=== PATIENT | female | born 1975 | race Caucasian/White ===

== ENCOUNTER 2016-09-12 11:24 | Emergency (ER) | payer OTHER ==
[~2016-09-12] VITALS: Ht 170.2 cm; Wt 73.6 kg
[~2016-09-12 11:24] MED LIST: ASCO500C2 PO; DOCO200C4 PO; FOLI0.4T2 PO; IBUP-1222 PO; OXYC-302 PO; PREN1TAB27 PO
[2016-09-12 12:46] LABS: BLOOD UREA NITROGEN 11 mg/dL (7-18)
[2016-09-12 13:01] VITALS: BP 117/71
== END 2016-09-12 13:18 | disposition home or self-care (01) ==
LOC: ED 13:12
DX: R00.2 Palpitations (principal)
CPT/HCPCS: 36415; 71020; 80048; 83735; 93005; 99285

== ENCOUNTER 2018-03-28 14:15 | Emergency (ER) | payer OTHER ==
[~2018-03-28] VITALS: Ht 167.6 cm; Wt 73.5 kg
[2018-03-28] MEDS ORDERED: MULT-658 PO (14:45)
[2018-03-28] MEDS ORDERED: ALBU0.63 NEB (14:45)
[2018-03-28] MEDS ORDERED: progesterone cream TP (14:50)
[2018-03-28 14:57] LABS: BASOPHILS # (AUTO) 0.01 x10^3/uL (0-0.1); BASOPHILS % (AUTO) 0 % (0-1); EOSINOPHILS # (AUTO) 0.02 x10^3/uL (0-0.4); EOSINOPHILS % (AUTO) 0 % (1-7); LYMPHOCYTES % (AUTO) 7 % (22-44); MD NO; MEAN CORPUSCULAR HEMOGLOBIN 30.8 pg (27.0-34.8); MEAN CORPUSCULAR HGB CONC 34.1 g/dL (32.4-35.8); MEAN CORPUSCULAR VOLUME 90.3 fL (80-100); MEAN PLATELET VOLUME 8.1 fL (7.4-10.4); MONOCYTES # (AUTO) 0.16 x10^3/uL (0.2-0.8); MONOCYTES % (AUTO) 2 % (2-9); NEUTROPHILS # (AUTO) 6.23 x10^3/uL (1.8-6.8); NEUTROPHILS % (AUTO) 90 % (42-75); PLATELET COUNT 143 x10^3/uL (130-400); RED BLOOD COUNT 4.54 x10^6/uL (3.82-5.3); RED CELL DISTRIBUTION WIDTH 12.8 % (9.6-15.2)
[2018-03-28] MEDS ORDERED: SODIUM CHLORIDE 0.9% 1,000ML IVBOLUS ONE (15:00)
[2018-03-28 15:09] LABS: ALBUMIN 3.7 g/dL (3.4-5.0); ANION GAP 9 mmol/L (5-15); CALCIUM 8.4 mg/dL (8.5-10.1); CHLORIDE 110 mmol/L (98-107)
[2018-03-28 15:15] LABS: ALANINE AMINOTRANSFERASE 25 U/L (12-78); ALKALINE PHOSPHATASE 46 U/L (45-117); BILIRUBIN,TOTAL 0.8 mg/dL (0.2-1.0); CREATININE 0.77 mg/dL (0.55-1.02); TOTAL PROTEIN 7.1 g/dL (6.4-8.2)
[2018-03-28 16:56] VITALS: BP 110/56
== END 2018-03-28 17:09 | disposition home or self-care (01) ==
LOC: ED 15:07
DX: R55 Syncope and collapse (principal); R11.0 Nausea
CPT/HCPCS: 36415; 71045; 80053; 84703; 85025; 85379; 93005; 96360; 96361; 99284; J7030